=== PATIENT | male | born 1950 | race Caucasian/White ===

== ENCOUNTER 2017-07-26 10:13 | Emergency (ER) | payer BC ==
[~2017-07-26] VITALS: Ht 165.1 cm; Wt 75.1 kg
[2017-07-26 10:22] VITALS: TEMP 36.9; Ht 165.1 cm; Wt 75.1 kg
[2017-07-26] MEDS ORDERED: ASPI81TA28 PO (10:32)
[2017-07-26 11:10] VITALS: BP 164/107; PULSE 90; O2SAT 96
--- NOTE | 2017-07-26 17:37 | EMERGENCY ROOM VISIT NOTE ---
ED Visit Note First contact with patient: 10:42 Chief Complaint: My friends dog bit my right leg. History of Present Illness: Mr. Nash is a 67-year-old male who ambulates into the ED accompanied by female and male friend complaining of a dog bite injury to the right lateral thigh. Patient reports approximately 2 hours ago he was visiting a friend when he was bitten by his friend's dog. The treatment was provided prior to arrival at the hospital. Patient is currently complaining of a mild burning and throbbing sensation in the area of the dog bite on the right lateral 5. He rates his discomfort 3/10. His pain is nonradiating. His pain worsens with palpation. He has not identified any alleviating factors related to the pain. He has not taken any medication for pain prior to arrival at the hospital. He denies any associated symptoms. Review of Systems: As noted above in history of present illness. Past Medical History: Hypertension. Current Medications: Aspirin. Allergies to Medications: Patient denies. Social History: Patient is not currently employed; he feels safe in his home environment; he denies tobacco use; he admits to alcohol use. Tetanus Immunization Status: Patient reports 8 years ago. Physical Examination: Vital Signs: Date Time Temp Pulse Resp B/P (MAP) Pulse Ox O2 Delivery O2 Flow Rate FiO2 07/26/17 11:10 90 20 164/107 96 07/26/17 10:22 36.9 97 18 173/87 98 Room Air GENERAL: 67-year-old male in minimal distress due to pain, nontoxic-appearing, afebrile and hemodynamically stable. NEUROLOGICAL: Awake, alert and oriented to person, place and time. Answering questions appropriately and following commands. Normal gait. Good hand eye coordination. SKIN: Warm, dry and pink. Right Thigh: Over the lateral aspect of the middle thigh patient has 2 superficial dog bites. No active bleeding. RIGHT LOWER LEG: No gross bony deformity. No tenderness in the hip, knee or lower leg. 2 soft tissue injuries as noted above. There is a small amount of oozing starting to develop. Throughout the leg the skin was warm and pink and capillary refill is brisk. He was able to do stinger slight sensations through all dermatomes of the leg. ED Course: Patient is assessed as noted above. Patient's medication list was reviewed. Patient's wounds were cleansed with antibacterial soap and water and covered with bacitracin dressings. Patient was educated about today's findings and instructed on his treatment plan ; he verbalized understanding and agreement with this plan. Clinical Impression: Dog bite right thigh. Disposition: Patient discharged home in stable condition accompanied by his ; prior to departure he was reassessed and subjectively reported he was feeling the same. Plan: Comfort measures, wound care and signs of infection were discussed the patient. Patient was encouraged to follow-up with his PCP or return to the ED for signs of infection or any new/concerning symptoms.
== END 2017-07-26 11:49 | disposition home or self-care (01) ==
LOC: C.EDB 10:15 → C.ED 11:49
DX: S70.371A Other superficial bite of right thigh, initial encounter (principal); W54.0XXA Bitten by dog, initial encounter; I10 Essential (primary) hypertension; Z79.82 Long term (current) use of aspirin

== ENCOUNTER 2023-04-12 05:20 | Observation (INO) ==
--- NOTE | 2023-02-21 13:03 | PAT Medication Instructions ---
Medication Instructions Date of Service February 21, 2023 Home Medications Medication Instructions Recorded biotin 5,000 mcg-choline 100 1 cap PO .3 times weekly #30 caps 11/21/22 mg-silicon 5 mg capsule coenzyme Q10 75 mg capsule (Ultra 75 mg PO DAILY #30 caps 11/21/22 CoQ10) carbidopa 25 mg-levodopa 100 mg 0.5 tab PO TID #270 tabs 01/08/23 tablet amlodipine 5 mg tablet 5 mg PO DAILY #30 tabs 02/19/23 Lactobacil.acidophilus-Bifido.animalis 5 billion cell sprinkle capsule (Probiotic) 1 cap PO DAILY cetirizine 10 mg tablet 10 mg PO PM psyllium husk 3.4 gram/5.4 gram oral powder (Metamucil) 1 tbsp PO DAILY biotin 5,000 mcg-choline 100 mg-silicon 5 mg capsule 1 cap PO .3 times weekly coenzyme Q10 75 mg capsule (Ultra CoQ10) 75 mg PO DAILY ascorbic acid (vitamin C) 500 mg tablet 500 mg PO DAILY carbidopa 25 mg-levodopa 100 mg tablet 0.5 tab PO TID acetaminophen 650 mg tablet,extended release (Tylenol 8 Hour) 650 mg PO Q12H PRN Pain calcium carb 300 mg-D3 800 unit-mag ox 25 mg-photocopier technician 0.5 mg-janes-Zn tablet (Caltrate + D3 Plus Minerals) 1 tab PO 3XWK cholecalciferol (vitamin D3) 125 mcg (5,000 unit) capsule 125 mcg PO QAM simethicone 125 mg chewable tablet (Gas-X Extra Strength) 125 mg PO BID PRN Gastric Reflux valsartan 80 mg tablet 80 mg PO QAM vitamin K2 100 mcg capsule 100 mcg PO 3XWK amlodipine 5 mg tablet 5 mg PO DAILY Continue as directed amlodipine 5 mg tablet 5 mg PO DAILY STOP taking 2 weeks before surgery biotin 5,000 mcg-choline 100 mg-silicon 5 mg capsule 1 cap PO .3 times weekly coenzyme Q10 75 mg capsule (Ultra CoQ10) 75 mg PO DAILY vitamin K2 100 mcg capsule 100 mcg PO 3XWK DO NOT take the morning of surgery Lactobacil.acidophilus-Bifido.animalis 5 billion cell sprinkle capsule (Probiotic) 1 cap PO DAILY psyllium husk 3.4 gram/5.4 gram oral powder (Metamucil) 1 tbsp PO DAILY ascorbic acid (vitamin C) 500 mg tablet 500 mg PO DAILY calcium carb 300 mg-D3 800 unit-mag ox 25 mg-photocopier technician 0.5 mg-janes-Zn tablet (Caltrate + D3 Plus Minerals) 1 tab PO 3XWK cholecalciferol (vitamin D3) 125 mcg (5,000 unit) capsule 125 mcg PO QAM simethicone 125 mg chewable tablet (Gas-X Extra Strength) 125 mg PO BID PRN Gastric Reflux valsartan 80 mg tablet 80 mg PO QAM Take morning of surgery With a small sip of water, OTHERWISE NOTHING TO EAT OR DRINK AFTER MIDNIGHT: carbidopa 25 mg-levodopa 100 mg tablet 0.5 tab PO TID acetaminophen 650 mg tablet,extended release (Tylenol 8 Hour) 650 mg PO Q12H PRN Pain (if needed) Take evening before surgery cetirizine 10 mg tablet 10 mg PO PM carbidopa 25 mg-levodopa 100 mg tablet 0.5 tab PO TID acetaminophen 650 mg tablet,extended release (Tylenol 8 Hour) 650 mg PO Q12H PRN Pain (if needed) simethicone 125 mg chewable tablet (Gas-X Extra Strength) 125 mg PO BID PRN Gastric Reflux (if needed) Other Notes If you have any questions please call us at [phone] or [phone] or [phone] or [phone]
--- NOTE | 2023-02-26 13:09 | Anesthesiology Consultation ---
Date of Service February 26, 2023 Assessment & Plan (1) Encounter for pre-operative examination: - COVID screening: Per assessment on 02/26: No known COVID-19 positive contacts or current COVID-19 related symptoms. Travel screen negative. Patient vaccinated. At surgeon discretion if preop Covid testing being done. - Outpatient joint assessment: Pt currently scheduled for inpatient pathway. If surgeon requests review for outpatient joint pathway, patient is not recommended candidate for outpatient joint program from anesthesia standpoint. - Neurology visit (01/08/23): "Parkinsonism.. He continues to have symptoms mild bradykinesia, stiffness and shuffling gait. Modest response to Sinemet and patient prefers to continue current dose. He is getting physical therapy.. Constipation.. Can be secondary Parkinson's disease. We discussed dietary options, stool softeners or discuss with PCP." - PCP visit (02/04/23): "Abdominal aortic aneurysm (AAA) 3.0 cm to 5.5 cm in diameter in male.. I repeat abdominal ultrasound will be ordered to address this issue prior to any potential orthopedic surgeon.. Osteoarthritis of right knee.. This was discussed at length. We reviewed his x-ray showing the angular deformity and the severe medial compartment compression. I believe he would have a acceptable risk for quadriceps sparing surgery.. Left ankle pain.. Hopefully this will improve if he addresses his right knee arthritis in a timely manner.. Constipation.. Start senna on a daily basis.. Parkinson disease.. Continue the Sinemet" - Anesthesia concerns: Reviewed SAB vs GA. Questions/concerns reviewed. Advised patient to discuss further with anesthesiologist DOS. Chart Review Chart Review: Acceptable Risk for Surgery and Patient seen in Pre Admission Testing Teaching & Discussion Pre-Anesthesia Teaching/Discussion Notes: Instructed NPO after midnight before surgery,except medications with 15 cc of water. Medication instructions provided according to the PAT guidelines. History Surgery Operation Date: 04/12/23 11:35 Proposed Procedures p Right Total Knee Arthroplasty - Frank Miller DO Height/Weight Height: 5 ft 5 in Weight: 68.9 kg Allergies Allergy/AdvReac Type Severity Reaction Status Date / Time rose Allergy Mild itching Verified 02/26/23 13:24 mouth, ears No Known Drug Allergies Allergy Verified 02/18/23 11:09 Medications Home Medications Medication Instructions Recorded Confirmed Last Taken Lactobacil.acidophilus-Bifido.animalis 1 cap PO DAILY 09/07/22 02/18/23 Unknown 5 billion cell sprinkle capsule (Probiotic) cetirizine 10 mg tablet 10 mg PO PM 09/07/22 02/18/23 Unknown psyllium husk 3.4 gram/5.4 gram 1 tbsp PO DAILY 10/11/22 02/18/23 Unknown oral powder (Metamucil) biotin 5,000 mcg-choline 100 1 cap PO .3 times weekly #30 caps 11/21/22 02/18/23 Unknown mg-silicon 5 mg capsule coenzyme Q10 75 mg capsule (Ultra 75 mg PO DAILY #30 caps 11/21/22 02/18/23 Unknown CoQ10) ascorbic acid (vitamin C) 500 mg 500 mg PO DAILY 01/08/23 02/18/23 Unknown tablet acetaminophen 650 mg 650 mg PO Q12H PRN Pain 02/18/23 02/18/23 Unknown tablet,extended release (Tylenol 8 Hour) calcium carb 300 mg-D3 800 1 tab PO 3XWK 02/18/23 02/18/23 Unknown unit-mag ox 25 mg-copying machine repairer 0.5 mg-janes-Zn tablet (Caltrate + D3 Plus Minerals) cholecalciferol (vitamin D3) 125 125 mcg PO QAM 02/18/23 02/18/23 Unknown mcg (5,000 unit) capsule simethicone 125 mg chewable tablet 125 mg PO BID PRN Gastric Reflux 02/18/23 02/18/23 Unknown (Gas-X Extra Strength) valsartan 80 mg tablet 80 mg PO QAM 02/18/23 02/18/23 Unknown vitamin K2 100 mcg capsule 100 mcg PO 3XWK 02/18/23 02/18/23 Unknown amlodipine 5 mg tablet 5 mg PO DAILY #30 tabs 02/19/23 Unknown 3-in-1 Commode #1 ea 02/26/23 02/26/23 Unknown Wheeled Walker #1 ea 02/26/23 02/26/23 Unknown carbidopa 25 mg-levodopa 100 mg 0.5 tab PO DIRECTED 02/26/23 02/26/23 Unknown tablet Past Medical History Medical History (Updated 02/26/23 @ 13:07 by Ping Larose) AAA (abdominal aortic aneurysm) small aneurysm of the distal abdominal aorta which measures 3.1 x 3.7 cm per 02/15/23 abdominal ultrasound Arthritis Constipation History of shingles 10 years ago Hypercholesterolemia Hypertension Lower back pain Nocturia Parkinson disease Follows with [facility] [place] neurology Exercise / Class Metabolic Activity III < 4 Walking/Shop/Light housework Past Family History Family History Mother Diabetes Myocardial infarction Father Hypertension Denies family history of Ovarian cancer Prostate cancer Breast cancer Colorectal cancer Past Surgical History Surgical History (Updated 02/26/23 @ 12:30 by Ping Larose) History of colonoscopy Hx of hernia repair Hx of removal of cyst back Past Anesthesia History No Hx of Anesthesia Complications and No Family Hx of Anesthesia Complications History of PONV No Hx of PONV and No Hx of Motion Sickness Social History Smoking Status: Former smoker Do You Dip or Chew Tobacco: No Smoking End Date: Quit 30 years ago Hx Alcohol Use: No Hx Substance Use: No substance use type: does not use Review of Systems Patient denies chest pain, shortness of breath, dyspnea on exertion, fever, chills, cough, wheezing, palpitations. Physical Exam Vital Signs VITALS BP 119/81 P 98 TEMP 97.9 SP02 97%RA RESP 16 PHYSICAL Full cervical extension range of motion. Full TMJ range of motion. TMD 3.5 finger breaths Mallampati Score 2 Dentition: intact, several crowns Lungs: clear throughout to auscultation Cardiac: regular rate and rhythm, no murmurs noted Spine: normal Carotid arteries: negative bruit Extremities: no LE edema Lab Results Anesthesia Preop Results Results Anesthesia Widget: WBC 6.10 K/ul (4.8-10.8) 02/26/23 Hgb 15.0 g/dl (14.0-18.0) 02/26/23 Hct 42.4 % (42.0-52.0) 02/26/23 Plt 246 K/uL (130-400) 02/26/23 Na 135 mmol/L (136-145) L 02/26/23 K 3.9 mmol/L (3.5-5.1) 02/26/23 Cl 103 mmol/L (98-107) 02/26/23 CO2 24 mmol/L (21-32) 02/26/23 BUN 18 mg/dl (6-23) 02/26/23 Creat 0.70 mg/dl (0.6-1.4) 02/26/23 Glucose Level 120 mg/dl (70-99(Fasting)) H 02/26/23 PT 10.9 Seconds (9.0-12.0) 02/26/23 PTT 26.8 Seconds (21.0-31.0) 02/26/23 INR 1.0 (0.9-1.1) 02/26/23 Blood Type O Positive 02/26/23 Antibody Screen NEGATIVE 02/26/23 Testing Electrocardiogram Date: 02/26/23 NSR at 98bpm. Chest X-Ray Date: 02/26/23 FINDINGS: PA and lateral chest radiographs are obtained. No prior studies are available for comparison at the time of dictation. The cardiomediastinal silhouette is unremarkable noting atherosclerotic calcification of the thoracic aorta. Emphysematous change is noted. The lungs and pleural spaces are clear. There is no pneumothorax. The skeletal structures are osteopenic. The bony thorax appears intact. Degenerative change is noted throughout the thoracic spine. IMPRESSION: No active disease in the chest. COVID-19 Risk Screen Screening Information COVID-19 Screen Date: 02/26/23 Exposure 21 Days Family/Household +COVID Last 21 Days: No Exposure 10 Days Any COVID Exposure Last 10 Days: No Symptoms Last 10 Days Experienced COVID Sx Last 10 Days: No + COVID 0-90 Days COVID + in Last 0-90 Days: No
--- NOTE | 2023-04-11 07:48 | History & Physical Report ---
Date of Service April 11, 2023 Assessment & Plan (1) Osteoarthritis of right knee: We will proceed with a right total knee arthroplasty. Postoperatively he will be started on aspirin for DVT prophylaxis and kept overnight in the hospital for postop medical management. He plans to use energy physical therapy upon discharge. History of Present Illness Chief Complaint: Osteoarthritis of the right knee. Primary Care Provider: Donato Chahal MD Yoav is a pleasant 72-year-old male who has been dealing with chronic worsening osteoarthritis of his right knee. He has been seen by Dr. Coronel who has given him several injections. He is still struggling with the right knee. He has trouble walking long distances. He has constant medial sided knee pain. He has been diagnosed with Parkinson's disease and he is following with Dr. Chahal. His knee pain is affecting his quality of life. After failed extensive conservative treatment, he has elected proceed with a right total knee arthroplasty. Allergies Allergy/AdvReac Type Severity Reaction Status Date / Time rose Allergy Mild itching Verified 03/13/23 15:05 mouth, ears No Known Drug Allergies Allergy Verified 03/13/23 15:05 Home Medications Medication Instructions Recorded Confirmed Type Lactobacil.acidophilus-Bifido.animalis 1 cap PO DAILY 09/07/22 03/13/23 History 5 billion cell sprinkle capsule (Probiotic) cetirizine 10 mg tablet 10 mg PO PM 09/07/22 03/13/23 History psyllium husk 3.4 gram/5.4 gram 4 tbsp PO DAILY 10/11/22 03/20/23 History oral powder (Metamucil) biotin 5,000 mcg-choline 100 1 cap PO .3 times weekly #30 caps 11/21/22 03/13/23 Rx mg-silicon 5 mg capsule coenzyme Q10 75 mg capsule (Ultra 75 mg PO DAILY #30 caps 11/21/22 03/13/23 Rx CoQ10) ascorbic acid (vitamin C) 500 mg 500 mg PO DAILY 01/08/23 03/13/23 History tablet calcium carb 300 mg-D3 800 1 tab PO 3XWK 02/18/23 03/13/23 History unit-mag ox 25 mg-copier and printer field technician 0.5 mg-janes-Zn tablet (Caltrate + D3 Plus Minerals) cholecalciferol (vitamin D3) 125 125 mcg PO QAM 02/18/23 03/13/23 History mcg (5,000 unit) capsule simethicone 125 mg chewable tablet 125 mg PO BID PRN Gastric Reflux 02/18/23 03/13/23 History (Gas-X Extra Strength) valsartan 80 mg tablet 80 mg PO HS 02/18/23 03/20/23 History vitamin K2 100 mcg capsule 100 mcg PO 3XWK 02/18/23 03/13/23 History 3-in-1 Commode #1 ea 02/26/23 03/13/23 Rx Wheeled Walker #1 ea 02/26/23 03/13/23 Rx carbidopa 25 mg-levodopa 100 mg 0.5 tab PO DIRECTED 02/26/23 03/13/23 History tablet acetaminophen 650 mg 850 mg PO Q12H PRN Pain 03/13/23 03/13/23 History tablet,extended release (Tylenol 8 Hour) Past Med/Surg History Medical History AAA (abdominal aortic aneurysm) small aneurysm of the distal abdominal aorta which measures 3.1 x 3.7 cm per 02/15/23 abdominal ultrasound Arthritis Constipation Encounter for pre-operative examination History of shingles 10 years ago Hypercholesterolemia Hypertension Knee pain, right Lower back pain Nocturia Parkinson disease Follows with [facility] [place] neurolog[place] Synovitis Surgical History History of colonoscopy Hx of hernia repair Hx of removal of cyst back Family History Mother Diabetes Myocardial infarction Father Hypertension Denies family history of Ovarian cancer Prostate cancer Breast cancer Colorectal cancer Social History Smoking Status: Former smoker Tobacco Type: Cigarettes and Pipe Age Started Using Tobacco: 19; Age Quit Using Tobacco: 31; Second Hand Exposure: No; Do You Dip or Chew Tobacco: No; Hx Alcohol Use: No Hx Substance Use: No Preferred Language: Greek Communication Ability: Effective Visual Impairment: Limited Hearing Ability: Normal Stereo Equipment Repairer Required: No Beliefs That Will Affect Care: None marital status: Current Living Situation: Spouse current occupational status: retired How many Children do You have: 3 Feels Safe at Home: Yes Childhood Exposure to Second-Hand Smoke: No caffeine: No Dental Care, Regularly: No Physical Activity Frequency: Daily Physical Activity Frequency Comment: walks Seatbelt Use: always Sunscreen Use: No Assistive Devices: Cane and Glasses Review of Systems All systems reviewed & are unremarkable except as noted in HPI & below. Physical Exam On physical examination of the right knee, he has a significant varus deformity. He has tenderness palpation over the distal medial femoral condyle and over the medial joint line. He has a trace effusion.. Constitutional WD/WN, vitals as above Eyes PERRL, conjunctivae normal, anicteric sclerae ENMT external ear and nose normal, oropharynx normal Neck trachea midline, no thyromegaly Respiratory normal respiratory effort, lungs clear to auscultation Cardiovascular RRR, no murmur, no edema Gastrointestinal (Abdomen) normal bowel sounds, soft, nontender, no hepatosplenomegaly Skin no rashes, warm and dry Psychiatric A+Ox3, euthymic affect Results & Data Results & Data Laboratory Results . Diagnostic Findings X-rays of the right knee show advanced osteoarthritis with joint space narrowing osteophyte formation and [id number] articulation.. PG Care Time/CCT Total # of Minutes Spent Total Time Spent with Patient: Total time spent is greater than 50% in coordination of care (as documented) at patient's floor/unit and/or counseling patient: Coding Level of Care Code None Diagnoses Osteoarthritis of right knee M17.11
[2023-04-12] MEDS ORDERED: TRANEXAMIC ACID 1,000 MG **IV Pre-op IV SCH (06:00)
[2023-04-12] MEDS ORDERED: LR 500ML BOLUS, THEN 15ML/HR IV SCH (06:00)
[2023-04-12] MEDS ORDERED: Ketorolac (*for OR use only*) 30 MG, dexAMETHasone 4 MG, KETAMINE HCL (**OR use only) 1... INFIL SCH (06:00)
[2023-04-12] MEDS ORDERED: TRANEXAMIC ACID 1,000 MG **IV Intra-op IV SCH (06:00)
[2023-04-12] MEDS ORDERED: dexAMETHasone 4 MG TAB PO SCH (06:00)
[2023-04-12] MEDS ORDERED: LR 60ML/HR IV SCH (06:00)
[2023-04-12] MEDS ORDERED: FAMOTIDINE 20 MG TAB PO SCH (06:00)
[2023-04-12] MEDS ORDERED: ceFAZolin 2000MG 2,000 MG/15 ML SYR IV SCH (06:00)
[2023-04-12] MEDS ORDERED: ACETAMINOPHEN 500 MG TAB PO SCH (06:00)
[2023-04-12] MEDS ORDERED: GABAPENTIN 300 MG CAP PO SCH (06:00)
[2023-04-12] MEDS ORDERED: ROPIVACAINE 0.5% 5 MG/ML 30 ML VIAL ONE (06:13)
[2023-04-12] MEDS ORDERED: EPINEPHrine INJ 1 MG/ML AMP ONE (06:13)
[2023-04-12] MEDS ORDERED: BUPIVACAINE 0.5 % 5 MG/1 ML PF 10ML VIAL ONE (06:13)
--- NOTE | 2023-04-12 06:22 | History & Physical Bridge Note ---
Date of Service April 12, 2023 History & Physical Bridge Note I have examined the patient, reviewed the History & Physical and in the interval since the performance of the History & Physical I have noted the following changes of clinical significance: no changes noted
[2023-04-12] MEDS ORDERED: ORTHO JOINT ANESTHETIC ONE (06:36)
[2023-04-12] MEDS ORDERED: MIDAZOLAM HCL 1 MG/ML 2ML VIAL ONE (06:39)
[2023-04-12] MEDS ORDERED: fentaNYL citrate PF 100 MCG/2 ML VIAL ONE (06:39)
[2023-04-12] MEDS ORDERED: NALOXONE HCL 0.4 MG/1 ML VIAL/CARP IV PRN ×2 (07:32→09:20)
[2023-04-12] MEDS ORDERED: fentaNYL citrate PF 100 MCG/2 ML VIAL IV PRN (07:32)
[2023-04-12] MEDS ORDERED: HYDROmorphone INJ 1 MG/ML SYRINGE IV PRN (07:32)
[2023-04-12] MEDS ORDERED: PROMETHAZINE HCL 12.5 MG in SODIUM CHLORIDE 0.9% 50 ML IV PRN (07:32)
[2023-04-12] MEDS ORDERED: ATROPINE SULFATE 0.1 MG/ML 10ML SYR IV PRN (07:32)
[2023-04-12] MEDS ORDERED: ONDANSETRON INJ 2 MG/ML 2 ML VIAL IV PRN ×2 (07:32→09:20)
[2023-04-12] MEDS ORDERED: ePHEDrine sulfate 50 MG/ML AMP IV PRN (07:32)
[2023-04-12] MEDS ORDERED: PROPOFOL IV EMULSION 10 MG/ML 20 ML VIAL IV ONE (07:45)
[2023-04-12] MEDS ORDERED: LIDOCAINE 2% 2 ML VIAL/AMP(20MG/ML) INFIL ONE (07:45)
--- NOTE | 2023-04-12 08:12 | Operative Report ---
PG Post Operative Report Pre & Post Diagnosis Operation Date: 04/12/23 07:00 Pre-Op Diagnosis: Degenerative Joint Disease Right Knee Post-Op Diagnosis: Degenerative Joint Disease Right Knee I identified the patient and participated in the time-out.: Yes Procedure Operation Date: 04/12/23 07:00 Actual Procedures p Right Total Knee Arthroplasty, Cemented(Right) - Frank Miller DO Surgeon Frank Miller DO Gr[employer] Teacher Frank Cantrell, PSA Estimated Blood Loss 30 Findings Consistent with Post-Op Diagnosis Specimens Right femoral tibial bone Description of Procedure Implants used: I used a Viarj Persona total knee arthroplasty system with a size 9 narrow PS femur, E tibia with a 30 mm stem extension, 34 oval patella, and a size 10 CPS polyethylene bearing. All components were cemented in place with Biomet cement. Yoav arrived [facility] for the above procedure. He was seen in the preoperative holding area and the operative extremity was identified and signed. He was given a preoperative antibiotic, TXA, a spinal anesthetic and an adductor nerve block. He was taken back to the operating room and laid on the table in supine position. He was given basic sedation. The operative knee was then prepped and draped in sterile fashion. A timeout was done, and the patient and the operative extremity was properly identified. A midline incision was made directly over the patella. Dissection was taken down to the extensor mechanism. A midvastus arthrotomy was used. The medial retinaculum was released and the fat pad was mostly excised. The knee was flexed and the ACL, PCL, and meniscus were removed. A drill was sent down the center of the femoral canal followed by an intramed ullary artur. Off that artur a distal femoral cutting block was placed. 9 mm was resected off the distal femur at 5 of valgus. A posterior referencing AP sizing guide was then placed on the distal femur. The femur measured to be a size 9. 2 drill holes were placed in 3 of external rotation. A 4-in-1 cutting block was then impacted into place. Anterior, posterior, and chamfer cuts were then made. The proximal tibia was then exposed. An external tibial alignment guide was placed. A tibial cut guide was then anchored in place and the proximal tibia was then resected. The posterior aspect of the knee was then opened up and any additional meniscus fragments and osteophytes were removed. The tibia measured to be a size E. The tibial plate was then placed in the appropriate rotation and the tibia was drilled and punched. Trial components were then placed. I used a size 10 CPS polyethylene insert. The knee was brought through a full range of motion and felt to be stable. The peg holes for the femoral component were then drilled. The patella was then everted and 9 mm was resected off the posterior aspect of the patella. The patella measured to be a size 34 oval. 3 peg holes were then drilled. A trial patella was placed. The knee was once again brought through a full range of motion and felt to be stable. Trial components were then removed. The surrounding soft tissues were injected with 100 cc of an orthopedic pain control cocktail. All components were then cemented into place with Biomet cement. The final polyethylene insert was then snapped into place. Once cement was dry the tourniquet was deflated. Hemostasis was obtained. A dilute betadyne lavage was then done for 3 minutes. The joint was then irrigated with normal saline solution. The midvastus arthrotomy was then closed with #1 Vicryl suture. The skin was closed with 2-0 Vicryl, 3-0V lock suture, and dodie. A soft compressive dressing was placed. He was then transferred to a hospital bed and taken to the postanesthesia care unit in stable condition. He tolerated the procedure well. Frank Cantrell PA-C, was present for the entire procedure. He was critical for patient positioning, prepping, draping, retraction exposure, wound closure and application of sterile dressing. I attest to the content of the Intraoperative Record and any orders documented therein. Any exceptions are noted below.
[2023-04-12] MEDS ORDERED: oxyCODONE HCL IR 5 MG TAB (IMMEDIATE RELEASE) PO PRN (09:20)
[2023-04-12] MEDS ORDERED: NON-FORMULARY MEDICATION (Vitamin K2 100 mcg capsule) PO SCH (09:20)
[2023-04-12] MEDS ORDERED: MAGNESIUM HYDROXIDE SUSP 30 ML UDC PO PRN (09:20)
[2023-04-12] MEDS ORDERED: HYDROmorphone INJ 0.5 MG/0.5 ML SYR IV PRN (09:20)
[2023-04-12] MEDS ORDERED: bisacodyL 10 MG SUPP PR PRN (09:20)
[2023-04-12] MEDS ORDERED: SODIUM CHLORIDE 0.9% 1000ML 1,000 ML IV SCH (09:20)
[2023-04-12] MEDS ORDERED: METOCLOPRAMIDE HCL INJ 5 MG/ML 2 ML VIAL IV PRN (09:20)
--- NOTE | 2023-04-12 09:33 | XRay Report ---
XR knee RT 1 or 2V routine CLINICAL HISTORY: Postoperative evaluation. COMPARISON: Knee radiographs November 29, 2022. FINDINGS: Alignment of the total right knee arthroplasty is anatomic. There is no periprosthetic fra cture or unexpected radiopaque foreign body. There are skin dodie. IMPRESSION: Expected findings following total right knee arthroplasty. ACT 112: Negative or not required by law. Electronically signed by: Flaco España M.D. 04/12/2023 9:32 AM
--- NOTE | 2023-04-12 09:40 | Anesthesiology Progress Note ---
Date of Service April 12, 2023 Anesthesia Post Procedure Vital Signs Vital Signs: Temp Pulse Resp BP Pulse Ox O2 Del Method O2 Flow Rate 04/12/23 09:05 36.4 C L 83 15 137/86 94 Room Air 04/12/23 08:55 85 19 132/81 94 Room Air 04/12/23 08:45 91 H 18 136/82 93 Room Air 04/12/23 08:35 92 H 16 108/81 97 Oxymask 5 04/12/23 08:27 36.7 C 90 11 L 117/75 97 Oxymask 5 04/12/23 06:01 37.0 C 93 H 16 153/93 H 97 Room Air Pain Intensity Right Knee: Pain Intensity: 4 Transfer of Care Handoff Completed per policy Notes Mental Status: alert / awake / arousable Patient Amnestic to Procedure: Yes Nausea / Vomiting: adequately controlled Pain: adequately controlled Airway Patency, RR, SpO2: stable & adequate BP & HR: stable & adequate Hydration State: stable & adequate Neuraxial Anesthesia: was administered and sensory block is resolving Anesthetic Complications: no major complications apparent
[2023-04-12] MEDS: MULTIVITAMIN TAB PO SCH (10:26)
[2023-04-12] MEDS: KETOROLAC TROMETHAMINE 15 MG/ML VIAL IV SCH ×3 (10:26→22:00)
[2023-04-12] MEDS: DOCUSATE SODIUM 100 MG CAP PO SCH ×2 (10:26→20:05)
[2023-04-12] MEDS: ASPIRIN 81 MG ECTAB PO SCH ×2 (10:26→20:04)
[2023-04-12] MEDS: CARBIDOPA/LEVODOPA 25/100MG TAB PO SCH ×3 (11:49→20:04)
[2023-04-12] MEDS ORDERED: LIDOCAINE 2% JELLY 5 ML TUBE EXT ONE (12:52)
[2023-04-12] MEDS: LIDOCAINE 2% JELLY 5 ML TUBE EXT SCH (14:13)
[2023-04-12] MEDS: ACETAMINOPHEN 500 MG TAB PO SCH ×2 (14:39→22:00)
[2023-04-12] MEDS: ceFAZolin 2000MG 2,000 MG/15 ML SYR IV SCH ×2 (14:53→22:00)
[2023-04-12] MEDS ORDERED: Nursing to Pharmacy Communication SCH (16:45)
[2023-04-12] MEDS ORDERED: CETIRIZINE HCL 10 MG TABLET PO SCH (21:00)
[2023-04-12] MEDS ORDERED: VALSARTAN 80 MG TAB PO SCH (21:00)
[2023-04-12] MEDS ORDERED: SENNA 8.6 MG TAB PO SCH (21:00)
[2023-04-13] MEDS: KETOROLAC TROMETHAMINE 15 MG/ML VIAL IV SCH ×2 (02:22→08:38)
[2023-04-13] MEDS: ACETAMINOPHEN 500 MG TAB PO SCH (05:33)
[2023-04-13] MEDS ORDERED: dexAMETHasone 4 MG TAB PO SCH (08:00)
[2023-04-13] MEDS: DOCUSATE SODIUM 100 MG CAP PO SCH (08:39)
[2023-04-13] MEDS: ASPIRIN 81 MG ECTAB PO SCH (08:40)
[2023-04-13] MEDS: MULTIVITAMIN TAB PO SCH (08:40)
[2023-04-13] MEDS: CARBIDOPA/LEVODOPA 25/100MG TAB PO SCH (08:40)
--- NOTE | 2023-04-13 08:40 | Orthopedic Progress Note ---
Date of Service April 13, 2023 Assessment & Plan (1) Status post right knee replacement: Overall he is doing very well. Is not having much pain in the right knee. He will be seen by physical therapy today for ambulation and range of motion exercises. The nursing staff can change his dressing after physical therapy today. He is on aspirin for DVT prophylaxis. He can be discharged home later today. He will follow-up with orthopedics in 2 weeks. Andre Cason was seen and examined at bedside this morning. Overall is doing very well. He is not having much pain in the right knee. He has not been ambulating much yet. He has no complaints.. Review of Systems All systems reviewed & are unremarkable except as noted in HPI & below. Physical Exam On physical examination of the right knee, the dressing is clean and dry. His leg is out full extension. He has active dorsiflexion plantarflexion of his right ankle.. Results & Data Results & Data Laboratory Results . Diagnostic Findings Postoperative x-rays of the right knee show the prosthesis to be in anatomic alignment without any evidence of fracture, desiccation, or loosening.. PG Care Time/CCT Total # of Minutes Spent Total Time Spent with Patient: Total time spent is greater than 50% in coordination of care (as documented) at patient's floor/unit and/or counseling patient: Coding Level of Care Code 55477 Post Operative Follow-Up Diagnoses Status post right knee replacement Z96.651
--- NOTE | 2023-04-13 08:41 | Discharge Summary ---
Date of Service April 13, 2023 Admission HPI (Per Admitting) Yoav is a pleasant 72-year-old male who has been dealing with chronic worsening osteoarthritis of his right knee. He has been seen by Dr. Coronel who has given him several injections. He is still struggling with the right knee. He has trouble walking long distances. He has constant medial sided knee pain. He has been diagnosed with Parkinson's disease and he is following with Dr. Chahal. His knee pain is affecting his quality of life. After failed extensive conservative treatment, he has elected proceed with a right total knee arthroplasty. Admission Exam (Per Admitting) On physical examination of the right knee, he has a significant varus deformity. He has tenderness palpation over the distal medial femoral condyle and over the medial joint line. He has a trace effusion.. Principal Diagnosis Same as "Discharge Diagnosis" noted below under Discharge Instructions. Discharge Exam On physical examination of the right knee, the dressing is clean and dry. His leg is out full extension. He has active dorsiflexion plantarflexion of his right ankle.. Discharge Data Procedures Performed Operation Date: 04/12/23 07:00 Actual Procedures p Right Total Knee Arthroplasty, Cemented(Right) - Frank Miller DO Ordered Studies 04/12/23 05:00 US - OR guided needle placemen Routine Hospital Course (1) Status post right knee replacement: On April 12, 2023 Yoav arrived at [facility] and underwent a right knee replacement without complication. He had a spinal anesthetic. Postoperatively he was started on aspirin for DVT prophylaxis and transferred to the general orthopedic floors. His hospital course was uneventful. On postop day #1, his vital signs were stable and his pain was well controlled. He was able to participate well with physical therapy doing ambulation and range of motion exercises. He was then discharged home. He will follow-up with orthopedics in 2 weeks. PG Care Time/CCT Total # of Minutes Spent Total Time Spent with Patient: Total time spent is greater than 50% in coordination of care (as documented) at patient's floor/unit and/or counseling patient: Discharge Plan Discharge Items Patient Disposition: Home - Self-Care Reason For Visit: DJD Right Knee Discharge Diagnosis: Right knee replacement Activity: Per Instructions section Non-emergency contact: Surgeon Call non-emergency contact if: your wound has increased redness and your wound has increased drainage Follow-up/Referrals: Donato Chahal MD [Primary Care Provider] - Diet: Regular Addtl Attending Provider Instructions: Activity and Therapy Recommendations: * If you are using [facility] then therapy will be provided at your home until they feel you have accomplished all of your goals. * If you are using [facility] then Physical Therapy will be provided until they feel you are ready to start Outpatient Physical Therapy. * If you are not using home therapy then Outpatient Physical Therapy should start about 3-5 days from your day of surgery. Therapy will last about 6-10 weeks * It is important not to put a pillow under your knee when you are relaxing or sleeping. It is just as important to make sure you are getting your knee perfectly straight as it is to regain your knee bend. * You were shown a series of exercises in the hospital. Do these exercises three times each day including the exercises you were shown in physical therapy. * Get up and walk several times each day. For the first four weeks, try not to stand or walk for more than one hour at a time. If you do stand or walk for more than one hour, you will not hurt anything, but your leg will likely swell. * As you feel comfortable, you may change from the walker or crutches to a cane and then to independent walking. Medications: * Narcotic You will likely be sent home from the hospital with a prescription for the narcotic pain medication that worked best throughout your stay. * Aspirin Most patients will be required to take Aspirin 81mg twice a day for 6 weeks after surgery. This is obtained [id number] and a prescription is not necessary. * Other medications may be prescribed for specific circumstances. If you have any questions, please call the office at . * Resume previous home medications unless otherwise instructed TEDs/Elastic Stockings: The white elastic stockings help limit swelling and prevent blood clots from forming in your legs.~ The more you wear them, the more they work. Wear them fo r six weeks. Dressing Care: The dressing can be changed after physical therapy on postop day #1. Daily dry dressing changes for a few days, especially if the incision is still draining some. If the incision is not draining then you may leave the dodie open to air. If there is a little bit of drainage or if the dodie are getting stuck on your clothing then cover the incision with a dry dressing. The dodie will be removed at your 2 week follow-up appointment. Showering: You may shower 5 days from the day of surgery as long as the incision is no longer draining. You may shower with the dodie exposed. Let soapy water run over the dodie and pat them dry. Do not scrub or soak the incision. Things To Watch For: * Drainage from the incision site that occurs more than one week after your surgery. * Increased redness at the incision site. * Fever above 102 degrees Fahrenheit. * Unusual chest pain or shortness of breath. * Call [facility] at with any of the above problems Follow-Up Visit: Follow-up with Dr. Miller's PA (Frank Cantrell) 2-3 weeks after your day of surgery. He will remove your dodie and answer any questions. If you have any additional questions or concerns, Dr Miller is usually in the office at the same time and will be available An appointment was probably scheduled when you signed-up for surgery in the office. If you have any questions call Office Instructions: More detailed instructions as well as Frequently Asked Questions were provided in a folder by our office when you signed-up for surgery. Please review these instructions when you get home. If you have any further questions or concerns, please feel free to call the office at [phone] Pending Studies at Discharge: No Stand-Alone Forms: My [facility], Smoking Cessation Medications and DC Order Prescriptions: New aspirin 81 mg Tablet,Delayed Release (Dr/Ec) 81 mg PO BID 42 Days Qty: 84 0RF oxycodone-acetaminophen 5-325 mg tablet 1 tab PO Q6H PRN (Reason: pain) Qty: 30 0RF Continued wgfiaw-[id number]-smmccog 5,000 mcg-100 mg-5 mg capsule 1 cap PO .3 times weekly Qty: 30 0RF Ultra CoQ10 75 mg capsule 75 mg PO DAILY Qty: 30 0RF ascorbic acid (vitamin C) 500 mg tablet 500 mg PO DAILY cetirizine 10 mg tablet 10 mg PO PM Metamucil 3.4 gram/5.4 gram powder 4 tbsp PO DAILY Rx Instructions: mix into at least 8 oz of water or juice before administering Probiotic 5 billion cell capsule, sprinkle 1 cap PO DAILY (DME) Wheeled Walker Misc See Rx Instructions .MEDSUPPLY Qty: 1 0RF Rx Instructions: As directed (DME) [facility] See Rx Instructions .MEDSUPPLY Qty: 1 0RF Rx Instructions: As directed valsartan 80 mg tablet 80 mg PO HS cholecalciferol (vitamin D3) 125 mcg (5,000 unit) capsule 125 mcg PO QAM Caltrate + D3 Plus Minerals 300 mg-800 unit -25 mg-0.5 mg tablet 1 tab PO 3XWK vitamin K2 100 mcg capsule 100 mcg PO 3XWK simethicone [Gas-X Extra Strength] 125 mg Tablet,Chewable 125 mg PO BID PRN (Reason: Gastric Reflux) carbidopa-levodopa 25-100 mg tablet 0.5 tab PO DIRECTED Rx Instructions: TID as directed- per patient specific time interval needed between meals acetaminophen [Tylenol 8 Hour] 650 mg tablet extended release 850 mg PO Q12H PRN (Reason: Pain) Discharge Orders: Discharge Order (Routine); Ordered 04/13/23 Ordered By: Frank Miller Admission Data Admit Date/Time: 04/12/23 08:29 Attending Provider: Frank Miller Admit Provider: Frank Miller Primary Care Provider: Donato Chahal
[2023-04-13] MEDS: LIDOCAINE 2% JELLY 5 ML TUBE EXT SCH (12:22)
== END 2023-04-13 13:01 | disposition home or self-care (01) ==
LOC: ASU 05:20 → 3E 05:20